=== PATIENT | male | born 1995 | race Caucasian/White ===

== ENCOUNTER 2017-10-13 02:12 | Observation (INO) ==
[2017-10-13] MEDS ORDERED: Sodium Chloride 0.9% 1,000 ML PRIMARY IV ONE (02:24)
[2017-10-13] MEDS ORDERED: NORMAL SALINE 10 ML SYRINGE FLUSH IVP PRN ×2 (02:24→05:23)
[2017-10-13] MEDS ORDERED: DIPH,PERTUSS,TET(ADACEL) VAC/PF 0.5 ML (Tdap) IM ONE (02:24)
[2017-10-13] MEDS ORDERED: ONDANSETRON 4 MG/2 ML VIAL IVP ONE (02:30)
[2017-10-13] MEDS ORDERED: MORPHINE SULFATE 4 MG/1 ML IVP ONE (02:30)
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
[2017-10-13 04:08] LABS: BASOPHILS # (AUTO) 0.01 10*3/UL; BASOPHILS % (AUTO) 0.1 % (0-1); EOSINOPHILS # (AUTO) 0.03 10*3/UL; EOSINOPHILS % (AUTO) 0.2 % (0-8); Hematocrit [HCT] 40.2 % (42.0-52.0); Hemoglobin [HGB] 14.1 g/dL (14.0-18.0); LYMPHOCYTES # (AUTO) 1.88 10*3/uL; MEAN CORPUSCULAR HEMOGLOBIN 29.3 PG (27-31); MEAN CORPUSCULAR HGB CONC 35.1 g/dL (33-37); MEAN CORPUSCULAR VOLUME 83.6 FL (80-90); MEAN PLATELET VOLUME 9.5 FL (7.4-12.2); MONOCYTES # (AUTO) 1.21 10*3/UL (0.3-0.8); MONOCYTES % (AUTO) 7.3 % (5-15); NEUTROPHILS # (AUTO) 13.35 10*3/UL; NEUTROPHILS % (AUTO) 80.7 % (50-80); RED BLOOD COUNT 4.81 10^6/uL (4.70-6.10)
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
[2017-10-13 04:13] LABS: PLATELET MORPHOLOGY COMMENT NORMAL MORPHOLOGY (NORM); RBC MORPHOLOGY COMMENT NORMAL MORPHOLOGY (NORM); WBC MORPHOLOGY COMMENT NORMAL MORPHOLOGY (NORM)
[2017-10-13 04:15] LABS: BLOOD UREA NITROGEN 18 mg/dL (7-22); SERUM ALBUMIN 4.3 g/dL (3.5-4.8)
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
[2017-10-13] MEDS ORDERED: ONDANSETRON 4 MG/2 ML VIAL IVP PRN (05:23)
[2017-10-13] MEDS ORDERED: Sodium Chloride 0.9% 1,000 ML PRIMARY IV SCH (05:30)
[2017-10-13] MEDS: MORPHINE SULFATE 2 MG/1 ML IVP PRN ×2 (06:34→08:26)
--- NOTE | 2017-10-13 08:46 | DI ---
EXAM: XR Chest, 2 Views CLINICAL HISTORY: Pulmonary contusion/pneumothorax, followup TECHNIQUE: Frontal and lateral views of the chest. COMPARISON: No relevant prior studies available. FINDINGS: Lungs: Pulmonary contusions evident by prior CT are not well visualized radiographically. Pleural space: Small right pneumothorax seen on prior CT is not well visualized radiographically. Heart: Unremarkable. No cardiomegaly. Mediastinum: Unremarkable. Bones/joints: Unremarkable. IMPRESSION: Small right pneumothorax and bilateral pulmonary contusions evident on prior CT are not well visualized radiographically.
[2017-10-13 09:21] LABS: BASOPHILS # (AUTO) 0.02 10*3/UL; BASOPHILS % (AUTO) 0.2 % (0-1); EOSINOPHILS # (AUTO) 0.03 10*3/UL; EOSINOPHILS % (AUTO) 0.4 % (0-8); Hematocrit [HCT] 39.9 % (42.0-52.0); Hemoglobin [HGB] 13.6 g/dL (14.0-18.0); LYMPHOCYTES # (AUTO) 2.02 10*3/uL; MEAN CORPUSCULAR HEMOGLOBIN 28.8 PG (27-31); MEAN CORPUSCULAR HGB CONC 34.1 g/dL (33-37); MEAN CORPUSCULAR VOLUME 84.5 FL (80-90); MEAN PLATELET VOLUME 9.3 FL (7.4-12.2); MONOCYTES # (AUTO) 0.66 10*3/UL (0.3-0.8); NEUTROPHILS # (AUTO) 5.54 10*3/UL; NEUTROPHILS % (AUTO) 66.9 % (50-80); RED BLOOD COUNT 4.72 10^6/uL (4.70-6.10)
[2017-10-13 09:24] LABS: PLATELET MORPHOLOGY COMMENT NORMAL MORPHOLOGY (NORM); RBC MORPHOLOGY COMMENT NORMAL MORPHOLOGY (NORM); WBC MORPHOLOGY COMMENT NORMAL MORPHOLOGY (NORM)
[2017-10-13 09:56] VITALS: O2SAT 96
[2017-10-13 10:20] VITALS: BP 106/46; RESP 16; TEMP 98.5
[2017-10-13] MEDS ORDERED: HYDROcodone-APAP 5 MG -325 MG TABLET PO PRN (10:48)
[2017-10-13 10:59] LABS: BILIRUBIN,URINE NEGATIVE (NEG); CLARITY,URINE CLEAR (CLEAR); COLOR,URINE YELLOW (Y); GLUCOSE, URINE (UA) NEGATIVE (NEG); OCCULT BLOOD,URINE NEGATIVE (NEG); PH,URINE 5.5 (5.0-8.5); PROTEIN,URINE 30 mg/dl (NEG); UROBILINOGEN,URINE 0.2 EU/dL (0.2)
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
[2017-10-13 11:07] LABS: URINE SAMPLE TYPE CLEAN CATCH URINE
[2017-10-13 11:08] LABS: AMPHETAMINE SCREEN NEGATIVE (NEG); CANNABINOID SCREEN,URINE POSITIVE (NEG); COCAINE SCREEN NEGATIVE (NEG); METHADONE URINE SCREEN NEGATIVE (NEG); METHAMPHETAMINES SCREEN,URINE NEGATIVE (NEG); OPIATE SCREEN,URINE POSITIVE (NEG); URINE SAMPLE TYPE CLEAN CATCH URINE; URINE SPECIFIC GRAVITY - MAN 1.015
== END 2017-10-13 11:44 | disposition home or self-care (01) ==
LOC: MED/SURG 02:12 → ER 02:12
PROVIDERS: ADMIT Personal Emergency Response Attendant; ATTEND Surgery